=== PATIENT | female | born 1950 | race Caucasian/White ===

== ENCOUNTER → 2016-11-09 | Outpatient (CLI) | payer OTHER ==
[~2016-11-09] MED LIST: IOPAMIDOL (ISOVUE 370) 100 ML BTL IV ONE
== END ==
LOC: CIMAGING 09:59
PROVIDERS: ATTEND Nurse Practitioner Family
DX: I65.22 Occlusion and stenosis of left carotid artery (principal); N18.3 Chronic kidney disease, stage 3 (moderate)
CPT/HCPCS: 70498; Q9967

== ENCOUNTER → 2016-11-18 | Outpatient (CLI) | payer OTHER | LOC: BHLMT 10:00 | PROVIDERS: ATTEND Internal Medicine Cardiovascular Disease | DX: I65.22 Occlusion and stenosis of left carotid artery (principal); I10 Essential (primary) hypertension; E66.8 Other obesity | CPT/HCPCS: 93005-PO ==

== ENCOUNTER 2016-12-02 06:07 | Inpatient (IN) | payer OTHER ==
[2016-12-02] MEDS ORDERED: LR 1,000 ML IV SCH (07:36)
[2016-12-02] MEDS ORDERED: ceFAZolin 2 GM/DEXTROSE 100 ML IV ONE (07:36)
[2016-12-02] MEDS ORDERED: LIDOCAINE 1% 2 ML INJ ID PRN (07:37)
[2016-12-02] MEDS ORDERED: THROMBIN (BOVINE) 20,000 UNIT SPRAY TP ONE (08:12)
[2016-12-02] MEDS ORDERED: BUPIVACAINE 0.5% 30 ML SDV ONE (08:13)
--- NOTE | 2016-12-02 08:17 | PDHPUP ---
History & Physical Update H&P update statement: This history and physical update is based on an assessment of the patient which was completed after admission or registration (within 24 hours), but prior to the surgery/procedure. H&P update: H&P reviewed & patient examined, no change in patient's condition since H&P completed
[2016-12-02 08:25] LABS: HEMATOCRIT 43.2 % (38.0-47.0); HEMOGLOBIN 14.4 g/dL (12.6-16.3)
[2016-12-02 08:36] LABS: ANION GAP 10 mEq/L (8-16); CALCIUM 9.1 mg/dL (8.5-10.4); CARBON DIOXIDE 23 mEq/l (22-31); CHLORIDE 110 mEq/L (97-110); CREATININE 1.2 mg/dL (0.6-1.0); GLOMERULAR FILTRATION RATE 45; GLUCOSE 90 mg/dL (70-100); POTASSIUM 5.1 mEq/L (3.5-5.2); SODIUM 143 mEq/L (134-144)
[2016-12-02] MEDS ORDERED: MIDAZOLAM 2 MG/2 ML VIAL IVP ONE (08:37)
[2016-12-02] MEDS ORDERED: MIDAZOLAM 2 MG/2 ML VIAL ONE (08:39)
--- NOTE | 2016-12-02 08:40 | PDANEPAE ---
ANE Past Medical History - Cardiovascular History Hx Hypertension: Yes Hx Arrhythmias: No Hx Chest Pain: No Hx Coronary Artery / Peripheral Vascular Disease: No Hx CHF / Valvular Disease: No Hx Palpitations: No - Pulmonary History Hx COPD: No Hx Asthma/Reactive Airway Disease: No Hx Recent Upper Respiratory Infection: No Hx Oxygen in Use at Home: No Hx Sleep Apnea: Yes Sleep Apnea Screening Result - Last Documented: Positive Pulmonary History Comment: PNEUMONIA X2 IN PAST - Neurologic History Hx Cerebrovascular Accident: No Hx Seizures: No Hx Dementia: No - Endocrine History Hx Diabetes: Yes Endocrine History Comment: HYPOTHYROID - Renal History Hx Renal Disorders: Yes Renal History Comment: KIDNEY DISEASE STAGE 3 - Liver History Hx Hepatic Disorders: Yes Hepatic History Comment: GALL STONES - Neurological & Psychiatric Hx Hx Neurological and Psychiatric Disorders: No - Cancer History Hx Cancer: No - Congenital Disorder History Hx Congenital Disorders: No - GI History GERD: moderate Hx Gastrointestinal Disorders: Yes Gastrointestinal History Comment: GERD - Other Health History Other Health History: ECZEMA. CHRONIC H/As. CELIAC DISEASE. OSTEOARTHRITIS. OBESITY - Chronic Pain History Chronic Pain: Yes (R KNEE, CALFS & FEET) - Surgical History Prior Surgeries: R KNEE SCOPES X2. TONSILLECTOMY ANE Review of Systems - Exercise capacity METS (RN): 4 METS ANE Patient History - Allergies Allergies/Adverse Reactions: gluten Allergy (Verified 11/25/16 10:31) - Home Medications Home Medications: Acetaminophen [Tylenol ES 500 mg (*)] 500 mg PO DAILY PRN 11/22/16 [Last Taken 12/01/16 19:30] Calcium Carbonate [Tums 500MG (*)] 1,000 mg PO BID 11/22/16 [Last Taken 11/28/16 ] Losartan Potassium [Cozaar 25 mg (*)] 25 mg PO DAILY 11/22/16 [Last Taken 19:30] Thyroid [Dewitt Thyroid 60 MG (*)] 60 mg PO DAILY10 11/22/16 [Last Taken 19:30] - NPO status NPO Since - Liquids (Date): 12/01/16 NPO Since - Liquids (Time): 18:30 NPO Since - Solids (Date): 12/01/16 NPO Since - Solids (Time): 18:30 - Smoking Hx Smoking Status: Former smoker - Family Anes Hx Family Hx Anesthesia Complications: NEG ANE Labs/Vital Signs - Labs Result Diagrams: 12/02/16 07:36 12/02/16 07:36 - Vital Signs Blood Pressure: 168/72 Heart Rate: 74 Respiratory Rate: 15 O2 Sat (%): 93 Height: 162.56 cm Weight: 109.769 kg
[2016-12-02] MEDS ORDERED: fentaNYL 100 MCG/2 ML INJ ONE ×3 (08:43→11:25)
[2016-12-02] MEDS ORDERED: PROPOFOL 200 MG/20 ML VIAL ONE (08:43)
[2016-12-02] MEDS ORDERED: ROCURONIUM 50 MG/5 ML VIAL ONE (08:44)
[2016-12-02] MEDS ORDERED: DEXAMETHASONE 4 MG/ML VIAL ONE (08:44)
[2016-12-02] MEDS ORDERED: ONDANSETRON 4 MG/2 ML VIAL ONE (08:44)
[2016-12-02] MEDS ORDERED: RANITIDINE 50 MG/2 ML VIAL ONE (08:44)
[2016-12-02] MEDS ORDERED: LIDOCAINE 2% 5 ML SDV ONE (08:48)
[2016-12-02] MEDS ORDERED: HEPARIN 10,000 UNIT/10 ML MDV ONE (09:20)
[2016-12-02] MEDS ORDERED: epHEDrine SULFATE 10 MG/ML SYR ONE ×2 (09:50→10:06)
[2016-12-02] MEDS ORDERED: OXYCODONE/APAP 5/325 TAB PO PRN (09:54)
[2016-12-02] MEDS ORDERED: HYDROmorphONE/DILAUDID 1 MG/ML SYR IVP PRN ×2 (09:54→10:54)
[2016-12-02] MEDS ORDERED: ACETAMINOPHEN 500 MG TAB PO PRN ×2 (09:54→10:57)
[2016-12-02] MEDS ORDERED: HYDROCODONE/APAP 5/325 TAB PO PRN ×2 (09:54→10:54)
[2016-12-02] MEDS ORDERED: NALOXONE HCL 0.4 MG/ML INJ IVP PRN ×2 (09:54→11:10)
[2016-12-02] MEDS ORDERED: ONDANSETRON 4 MG/2 ML VIAL IVP PRN ×2 (09:54→10:54)
[2016-12-02] MEDS ORDERED: D5W LR 500 ML IV PRN (09:54)
[2016-12-02] MEDS ORDERED: LABETALOL HCL 50 MG/10 ML SYR IVP PRN (09:54)
[2016-12-02] MEDS ORDERED: PROTAMINE SULFATE 50 MG/5 ML VIAL IVP ONE (10:15)
[2016-12-02] MEDS ORDERED: GLYCOPYRROLATE 0.2 MG/1 ML VIAL ONE ×2 (10:25→10:27)
[2016-12-02] MEDS ORDERED: NEOSTIGMINE METHYLSULFATE 5 MG/5 ML SYR ONE (10:25)
--- NOTE | 2016-12-02 10:51 | POSTOPPROG ---
Post Op Note Date of Operation: 12/02/16 Surgeon: Price Murillo Kiln Mechanic: rahel Anesthesiologist: zak Anesthesia: GET(General Endotracheal) Pre-op Diagnosis: critical left carotid stenosis Post-op Diagnosis: same Indication: 95% stenosis Procedure: left carotid endarterectomy with patch and eeg monitor Findings: short very tight stenosis at bifurcation with small ica Inf/Abcess present in the surg proc area at time of surgery?: No Depth: Organ Space EBL: 50-100 Complications: 0 Specimen(s): plaque
[2016-12-02] MEDS ORDERED: D5W 1/2 NS W/ 20 KCl/L 1,000 ML IV SCH (11:00)
[2016-12-02] MEDS ORDERED: ENALAPRILAT DIHYDRATE 1.25 MG/ML VIAL IVP PRN (11:10)
[2016-12-02] MEDS ORDERED: ENALAPRILAT DIHYDRATE 1.25 MG/ML VIAL ONE (11:13)
[2016-12-02] MEDS: fentaNYL 100 MCG/2 ML INJ IVP PRN ×2 (11:30→11:47)
--- NOTE | 2016-12-02 13:25 | SOAPPROG ---
SOAP Progress Note Assessment/Plan: Assessment: POSTOP DOING WELL /NEURO INTACT/ WOUND OKAY/VITAL SIGNS OKAY Plan: PER ORDERS 12/02/16 13:24 Objective: Vital Signs Temp Pulse Resp BP Pulse Ox 36.4 C 58 L 11 L 142/56 H 100 12/02/16 12:41 12/02/16 13:00 12/02/16 13:00 12/02/16 13:00 12/02/16 13:00 Laboratory Results 12/02/16 07:36 12/02/16 07:36 12/01/16 12/02/16 12/03/16 05:59 05:59 05:59 Intake Total 200 Balance 200 ICD10 Worksheet Patient Problems: Problems Problem Status Onset Carotid stenosis, left Acute - ICD10 Problem Qualifiers (1) Carotid stenosis, left
--- NOTE | 2016-12-02 14:05 | POSTANESTH ---
Post Anesthetic Evaluation Cardiovascular Status: Normal, Stable Respiratory Status: Normal, Stable Level of Consciousness/Mental Status: Can Participate in Eval Pain Control: Adequate, Prn Tx Ordered Nausea/Vomiting Control: Adequate, Prn Tx Ordered
--- NOTE | 2016-12-02 19:06 | SOAPPROG ---
SOAP Progress Note Assessment/Plan: Assessment: POSTOP DOING WELL /NEURO INTACT/ WOUND OKAY/VITAL SIGNS OKAY Plan: PER ORDERS 12/02/16 13:24 12/02/16 19:04 CONTINUES TO DO WELL/WOUND OKAY/ NEURO INTACT/POSSIBLY HOME IN THE A.M. Objective: Vital Signs Temp Pulse Resp BP Pulse Ox 36.4 C 82 16 149/61 H 94 12/02/16 16:00 12/02/16 18:00 12/02/16 18:00 12/02/16 18:00 12/02/16 18:00 Laboratory Results 12/02/16 07:36 12/02/16 07:36 12/01/16 12/02/16 12/03/16 05:59 05:59 05:59 Intake Total 709 Balance 709 ICD10 Worksheet Patient Problems: Problems Problem Status Onset Carotid stenosis, left Acute - ICD10 Problem Qualifiers (1) Carotid stenosis, left
[2016-12-02] MEDS: CALCIUM CARBONATE 500 MG CHEWABLE TAB PO SCH (23:09)
[2016-12-03 04:09] VITALS: TEMP 98.4
--- NOTE | 2016-12-03 08:52 | SOAPPROG ---
SOAP Progress Note Assessment/Plan: Assessment: POSTOP DOING WELL /NEURO INTACT/ WOUND OKAY/VITAL SIGNS OKAY Plan: PER ORDERS 12/02/16 13:24 12/02/16 19:04 CONTINUES TO DO WELL/WOUND OKAY/ NEURO INTACT/POSSIBLY HOME IN THE A.M. 12/03/16 08:51 DOING VERY WELL/ AFEBRILE/ WOUND OK/ NEURO INTACT/ SLIGHT HEADACHE, SEEMS MUSCULAR/ HOME TODAY Objective: Vital Signs Temp Pulse Resp BP Pulse Ox 36.9 C 60 18 128/58 H 96 12/03/16 00:00 12/03/16 06:00 12/03/16 06:00 12/03/16 06:00 12/03/16 06:00 Laboratory Results 12/02/16 07:36 12/02/16 07:36 12/02/16 12/03/16 12/04/16 05:59 05:59 05:59 Intake Total 1159 Balance 1159 ICD10 Worksheet Patient Problems: Problems Problem Status Onset Carotid stenosis, left Acute - ICD10 Problem Qualifiers (1) Carotid stenosis, left
[2016-12-03 08:53] VITALS: BP 152/64; PULSE 76; RESP 23; O2SAT 93
[2016-12-03] MEDS: CALCIUM CARBONATE 500 MG CHEWABLE TAB PO SCH (08:59)
[2016-12-03] MEDS ORDERED: LOSARTAN POTASSIUM 25 MG TAB PO SCH (09:00)
[2016-12-03] MEDS ORDERED: THYROID 60 MG TAB PO SCH (10:00)
--- NOTE | 2016-12-08 21:39 | GOP ---
[f rep st] OPERATIVE REPORT DATE OF OPERATION: SURGEON: Price Murillo MD WHEELMAN: Peña Miller MD PREOPERATIVE DIAGNOSIS: Critical left carotid stenosis. POSTOPERATIVE DIAGNOSIS: Critical left carotid stenosis. PROCEDURE PERFORMED: 1. Left carotid endarterectomy with electroencephalogram monitoring. 2. Cervical lymph node biopsy. FINDINGS: Patient was found to have a torturous left carotid artery with a very tight 90% plus sten osis at the origin of the internal carotid artery. She had no EEG changes and she awoke fully neuro logically intact. DESCRIPTION OF PROCEDURE: The patient was taken the operating room, where she received satisfactory general endotracheal anesthesia. She was placed in the supine position, prepped and draped in usua l sterile fashion. She was systemically heparinized prior to induction of anesthesia. Incision was made along the anterior border of the sternocleidomastoid muscle and excision extended down through the platysma and superficial fascia. The common facial vein was multiply ligated and divided, and the jugular vein was retracted laterally, exposing the arterial tree. The common carotid, external carotid, and internal carotid arteries were all dissected free and controlled with vessel loops, as were their branches. After adequate exposure was achieved, the patient was given additional heparin . After adequate circulation time, the vessels were occluded with vessel loops. Arteriotomy was ma de in the common carotid artery extending up in the internal carotid artery. The dense plaque was q uite tight but very limited. Expeditious endarterectomy was then done. There were no EEG changes a nd there was good backflow from the internal carotid artery. The plaque was removed from the origin of the internal carotid artery and the external carotid. All vessels were flushed at that point. The wound was then closed with a Dacron patch, securing it in place with a Hemashield 7 suture. Edilberto w was first established through the external carotid and then back through the internal carotid. The re were, again, no EEG changes. The suture line appeared to be hemostatic. Heparin was reversed wi th protamine. The wound was sprayed with some topical thrombin and closed in layers using 3-0 Vicry l for the fascia, 3-0 Vicryl for the subcu, and 4-0 Monocryl subcuticular stitch for the skin. It s hould be noted also that a lymph node in the area was dissected free and removed and sent to Patholo gy. This is a 1.5 cm node which appeared to be benign after dissecting it free. [facility] condition. There were no complications. Blood loss was less than 25 cc. /[id number]/MODL
== END 2016-12-03 10:10 | disposition home or self-care (01) | DRG 39 ==
LOC: F2W 06:07 → F2N 12:13
PROVIDERS: ADMIT Surgery; ATTEND Surgery
PROC: 03CN0ZZ Extirpation of Matter from Left External Carotid Artery, Open Approach (ICD-10-PCS; principal; 2016-12-02 08:30)
PROC: 07B20ZX Excision of Left Neck Lymphatic, Open Approach, Diagnostic (ICD-10-PCS; principal; 2016-12-02 08:30)
PROC: 03UJ0JZ Supplement Left Common Carotid Artery with Synthetic Substitute, Open Approach (ICD-10-PCS; principal; 2016-12-02 08:30)
PROC: 03CL0ZZ Extirpation of Matter from Left Internal Carotid Artery, Open Approach (ICD-10-PCS; principal; 2016-12-02 08:30)
DX: I65.22 Occlusion and stenosis of left carotid artery (principal); K21.9 Gastro-esophageal reflux disease without esophagitis; I10 Essential (primary) hypertension; E03.9 Hypothyroidism, unspecified; Z87.891 Personal history of nicotine dependence; E66.9 Obesity, unspecified; Z86.010 Personal history of colon polyps
CPT/HCPCS: 80061-PO; 80076-PO; C1768; J0690; J1100; J1644; J2250; J2405; J2704; J2710; J2720; J2780; J3010